=== PATIENT | female | born 1930 | race Caucasian/White ===

== ENCOUNTER → 2016-12-18 | Outpatient (CLI) | payer OTHER, MEDICARE | LOC: BHLMT 10:00 | PROVIDERS: ATTEND Internal Medicine Cardiovascular Disease | DX: I50.9 Heart failure, unspecified (principal) | CPT/HCPCS: 93306-PO ==

== ENCOUNTER 2017-09-10 16:29 | Observation (INO) | payer MEDICARE, OTHER ==
--- NOTE | 2017-09-10 16:44 | CPEKG ---
Heart Rate: 83 RR Interval: 723 P-R Interval: 120 QRSD Interval: 82 QT Interval: 428 QTC Interval: 503 P [place]: 250 QRS [place]: -29 T Wave [place]: 163 EKG Severity - ABNORMAL ECG - EKG Impression: ECTOPIC ATRIAL RHYTHM EKG Impression: BORDERLINE LEFT AXIS DEVIATION EKG Impression: ABNORMAL T, CONSIDER ISCHEMIA, LATERAL LEADS EKG Impression: BORDERLINE PROLONGED QT INTERVAL Electronically Signed By: Marino Chun 10-Sep-2017 21:43:15
[2017-09-10 16:50] LABS: PLATELET COUNT 567 10^3/uL (150-400)
--- NOTE | 2017-09-10 16:58 | CPEKG ---
Heart Rate: 91 RR Interval: 659 P-R Interval: 120 QRSD Interval: 82 QT Interval: 416 QTC Interval: 512 P [place]: 250 QRS [place]: -31 T Wave [place]: 180 EKG Severity - ABNORMAL ECG - EKG Impression: ECTOPIC ATRIAL RHYTHM EKG Impression: LEFT AXIS DEVIATION EKG Impression: NONSPECIFIC T ABNORMALITIES, LATERAL LEADS EKG Impression: PROLONGED QT INTERVAL Electronically Signed By: Marino Chun 10-Sep-2017 21:43:02
[2017-09-10 17:22] LABS: INR 0.88 (0.83-1.16); PROTIME(PATIENT) 12.2 SEC (12.0-15.0)
[2017-09-10] MEDS ORDERED: ONDANSETRON 4 MG/2 ML VIAL IVP ONE (17:59)
[2017-09-10] MEDS ORDERED: NS 1,000 ML IV ONE (18:16)
[2017-09-10] MEDS ORDERED: HYDROmorphONE/DILAUDID 2 MG/ML INJ IVP ONE ×2 (18:22→18:50)
[2017-09-10] MEDS ORDERED: IOPAMIDOL (ISOVUE 370) 100 ML BTL IV ONE (18:28)
--- NOTE | 2017-09-10 18:43 | EDPHY ---
H & P Time Seen by Provider: 09/10/17 16:43 HPI/ROS: Chief complaint. Chest pain HPI. Patient is an 87-year-old female with right-sided chest pain that began 2 days ago. She has been in rehab and was just discharged after a fall with rib fractures. Her left-sided rib fractures are healing and she does not really have any left-sided chest discomfort. Severe right-sided chest discomfort especially with taking a deep breath. She slightly short of breath. No fever or cough. She shows me pain in the lower right ribs. Really not tender in the upper abdomen however her pain has slowly increased over the past 2 days. No unusual leg pain or swelling. ROS Constitutional. no fever/chills, no weakness Eyes. no problems with vision ENT. no sore throat, no nasal drainage Cardiovascular. Right-sided chest pain Respiratory. no shortness of breath, no cough Abdominal. no abdominal pain, no nausea/vomiting, no diarrhea . no problems urinating MS. no calf pain/swelling, no neck/back pain, no joint pain Skin. no rash Lymph. no swollen glands Neuro. no headache, no dizziness, no difficulty walking or with speech Past Medical/Surgical History: Past medical history hypertension, COPD, hypothyroid, dyslipidemia, IBS, GERD, fall with rib fractures Social History: Single, nonsmoker, no alcohol Smoking Status: Never smoked Physical Exam: General Appearance: Alert well-developed female moderate distress vital signs are stable Eyes: Pupils equal and round no pallor or injection. ENT, Mouth: Mucous membranes are moist. Respiratory: There are no retractions, lungs are clear to auscultation. Cardiovascular: Regular rate and rhythm. Gastrointestinal: Abdomen is soft and nontender, no masses, bowel sounds normal. Neurological: Awake and alert, sensory and motor exams grossly normal. Skin: Warm and dry, no rashes. Musculoskeletal: Neck is supple nontender. Extremities symmetrical, full range of motion. Psychiatric: Patient is oriented X 3, there is no agitation. Constitutional: Initial Vital Signs Temperature (C) 36.8 C 09/10/17 16:39 Heart Rate 84 09/10/17 16:39 Respiratory Rate 18 09/10/17 16:39 Blood Pressure 182/95 H 09/10/17 16:39 O2 Sat (%) 97 09/10/17 16:39 O2 Delivery Mode Nasal Cannula O2 (L/minute) 3 Allergies/Adverse Reactions: MEREDITH Inhibitors Allergy (Severe, Verified 01/04/14 00:57) cephalexin [Cephalexin] Allergy (Severe, Verified 01/04/14 00:57) dicyclomine Allergy (Severe, Verified 01/04/14 00:57) lisinopril Allergy (Verified 09/10/17 16:38) Home Medications: Medication Instructions Recorded Levothyroxine Sodium [Levothroid] 50 mcg PO DAILY@0600 08/08/12 Omeprazole 40 mg PO DAILY 08/08/12 Simvastatin [Zocor 40 mg] 40 mg PO DAILY18 08/08/12 Citalopram [CeleXA 20 MG] 20 mg PO DAILY 11/26/13 Gabapentin [Neurontin] 600 mg PO BID 11/26/13 Verapamil ER [Calan SR/ER 240MG 240 mg PO BID 11/26/13 (*)] Aspirin [Aspirin 81mg (*)] 81 mg PO DAILY 12/15/14 Docusate Sodium [Colace 100 MG (*)] 100 mg PO HS 12/15/14 Acetaminophen [Tylenol 325mg (*)] 325 mg PO Q4 PRN 09/10/17 Benzocaine/Menthol 15/4 [Cepacol 1 lozenge PO PRN PRN 09/10/17 Lozenge] Bisacodyl [Dulcolax] 10 mg [place] HS PRN 09/10/17 Bumetanide [Bumetanide] 0.5 mg PO DAILY 09/10/17 Cholecalciferol Vit D3 [Vitamin D3 2,000 units PO DAILY 09/10/17 (*)] Ezetimibe [Ezetimibe] 10 mg PO HS 09/10/17 Hydrocodone/Acetaminophen [Gratis 1 each PO Q6 09/10/17 5/325 (*)] Lidocaine 4%/Menthol 1% [Icy Hot 1 patch TD DAILY 09/10/17 Lidocaine/Menthol 4%/1% Patch (*)] Magnesium Citrate 300 ml (*) 300 ml PO HS PRN 09/10/17 Methocarbamol [Robaxin 500 mg (*)] 500 mg PO DAILY 09/10/17 Nystatin Susp [Mycostatin Oral 5 ml PO QID PRN 09/10/17 Liquid] [place]-3 Fatty Acids [Fish Oil 1000 2,000 mg PO DAILY 09/10/17 mg (*)] Tears/Dextran 70/Hypromellose 1 drop EACHEYE Q2 PRN 09/10/17 [Natural Balance Tears (*)] Vit A/Vit C/Vit E/Zinc/Copper 2 each PO DAILY 09/10/17 [Preservision Tablet] Medical Decision Making - Diagnostics EKG Interpretation: EKG interpreted by me shows what appears to be an ectopic atrial rhythm with inverted P waves in several of the leads. There appears to be left axis deviation. QRS is otherwise normal. There is no significant ST elevation or depression. Laterally in leads 1 and leads 5 and 6 show inverted T-waves the rate is 91 Imaging Results: Imaging Impressions Chest X-Ray 09/10/17 17:07 Impression: 1. Numerous acute left rib fractures, no pneumothorax. 2. Dense retrocardiac and left basilar consolidation may represent pneumonia or pulmonary contusion. A small hemothorax versus parapneumonic effusion is suspected. Chest/Thorax CTA 09/10/17 18:17 Impression: 1. No definite pulmonary thromboemboli. 2. Numerous left rib fractures. 3. Moderate to large left-sided pleural effusion with extensive left lower lobe atelectasis. Findings were communicated by telephone with Dr. PATRICIA PERLA at 09/10/2017 19 :28 CT angio chest shows no pulmonary embolus. Left rib fractures moderate to large left-sided pleural effusion and atelectasis but no findings on the right reviewed by me and discussed with Radiology Procedures: IV normal saline, monitor Dilaudid for pain ED Course/Re-evaluation: D-dimer is elevated. The patient and her family and I discussed recommendation for CT angiogram of chest. They expressed understanding and agreement I consulted discussed the case with Dr. Mendoza before we have are CT angio results back but I do think the patient likely will need admission tonight. At 6:50 p.m. Patient is requesting further pain medication. 1 mg Dilaudid Re-evaluation 7:30 p.m. Consulted discussed case again with Dr. Mendoza and she agrees to the admission. Differential Diagnosis: Is somewhat confusing for the patient to be having right-sided chest discomfort. her findings are all on the left in terms of multiple rib fractures and pleural effusion. I considered acute coronary syndrome and pulmonary embolus. There is no evidence of pulmonary embolus on CT angiogram. I also considered acute gallbladder and cholecystitis and other problems related to the right upper quadrant. However the patient's liver function and lipase are normal. - Data Points Laboratory Results: Laboratory Results 09/10/17 16:40 09/10/17 16:40 09/10/17 09/10/17 09/10/17 16:40 16:40 16:40 WBC 9.21 10^3/uL 10^3/uL (3.80-9.50) RBC 4.07 10^6/uL L 10^6/uL (4.18-5.33) Hgb 13.3 g/dL g/dL (12.6-16.3) Hct 39.4 % % (38.0-47.0) MCV 96.8 fL fL (81.5-99.8) MCH 32.7 pg pg (27.9-34.1) MCHC 33.8 g/dL g/dL (32.4-36.7) RDW 13.1 % % (11.5-15.2) Plt Count 567 10^3/uL H 10^3/uL (150-400) MPV 8.4 fL L fL (8.7-11.7) Neut % (Auto) 74.0 % % (39.3-74.2) Lymph % (Auto) 15.9 % % (15.0-45.0) [place] % (Auto) 8.4 % % (4.5-13.0) Eos % (Auto) 1.1 % % (0.6-7.6) Baso % (Auto) 0.3 % % (0.3-1.7) Nucleat RBC Rel Count 0.0 % % (0.0-0.2) Absolute Neuts (auto) 6.82 10^3/uL H 10^3/uL (1.70-6.50) Absolute Lymphs (auto) 1.46 10^3/uL 10^3/uL (1.00-3.00) Absolute Monos (auto) 0.77 10^3/uL 10^3/uL (0.30-0.80) Absolute Eos (auto) 0.10 10^3/uL 10^3/uL (0.03-0.40) Absolute Basos (auto) 0.03 10^3/uL 10^3/uL (0.02-0.10) Absolute Nucleated RBC 0.00 10^3/uL 10^3/uL (0-0.01) Immature Gran % 0.3 % % (0.0-1.1) Immature Gran # 0.03 10^3/uL 10^3/uL (0.00-0.10) PT 12.2 SEC SEC (12.0-15.0) INR 0.88 (0.83-1.16) APTT 25.8 SEC SEC (23.0-38.0) D-Dimer 1.98 ug/mLFEU H ug/mLFEU (0.00-0.50) Sodium Potassium Chloride Carbon Dioxide Anion Gap BUN Creatinine Estimated GFR Glucose Calcium Total Bilirubin Cancelled Conjugated Bilirubin Cancelled Unconjugated Bilirubin Cancelled AST Cancelled ALT Cancelled Alkaline Phosphatase Cancelled Troponin I Total Protein Cancelled Albumin Cancelled Lipase Cancelled 09/10/17 16:40 WBC RBC Hgb Hct MCV MCH MCHC RDW Plt Count MPV Neut % (Auto) Lymph % (Auto) [place] % (Auto) Eos % (Auto) Baso % (Auto) Nucleat RBC Rel Count Absolute Neuts (auto) Absolute Lymphs (auto) Absolute Monos (auto) Absolute Eos (auto) Absolute Basos (auto) Absolute Nucleated RBC Immature Gran % Immature Gran # PT INR APTT D-Dimer Sodium 135 mEq/L mEq/L (135-145) Potassium 4.2 mEq/L mEq/L (3.5-5.2) Chloride 94 mEq/L L mEq/L (97-110) Carbon Dioxide 27 mEq/l mEq/l (22-31) Anion Gap 14 mEq/L mEq/L (8-16) BUN 15 mg/dL mg/dL (7-23) Creatinine 0.5 mg/dL L mg/dL (0.6-1.0) Estimated GFR > 60 Glucose 108 mg/dL H mg/dL (70-100) Calcium 9.5 mg/dL mg/dL (8.5-10.4) Total Bilirubin 0.6 mg/dL mg/dL (0.1-1.4) Conjugated Bilirubin 0.6 mg/dL H mg/dL (0.0-0.5) Unconjugated Bilirubin 0.0 mg/dL mg/dL (0.0-1.1) AST 23 IU/L IU/L (14-46) ALT 23 IU/L IU/L (9-52) Alkaline Phosphatase 159 IU/L H IU/L (38-126) Troponin I < 0.012 ng/mL ng/mL (0.000-0.034) Total Protein 7.1 g/dL g/dL (6.3-8.2) Albumin 3.9 g/dL g/dL (3.5-5.0) Lipase 44 IU/L IU/L (23-300) Medications Given: Discontinued Medications Hydromorphone HCl (Dilaudid) 0.5 mg IVP EDNOW ONE Stop: 09/10/17 18:23 Last Admin: 09/10/17 18:33 Dose: 0.5 mg Hydromorphone HCl (Dilaudid) 1 mg IVP EDNOW ONE Stop: 09/10/17 18:51 Last Admin: 09/10/17 19:19 Dose: 1 mg Sodium Chloride (Ns) 1,000 mls @ 0 mls/hr IV ONCE ONE; Wide Open PRN Reason: Protocol Stop: 09/10/17 18:17 Last Admin: 09/10/17 18:33 Dose: 1,000 mls Ondansetron HCl (Zofran) 4 mg IVP EDNOW ONE Stop: 09/10/17 18:00 Last Admin: 09/10/17 18:10 Dose: 4 mg Departure - Departure Disposition: [facility] Acute Clinical Impression: Chest pain Qualifiers: Chest pain type: unspecified Qualified Code(s): R07.9 - Chest pain, unspecified Condition: Fair
[2017-09-10] MEDS ORDERED: HYDROmorphONE/DILAUDID 2 MG/ML INJ IVP PRN (20:28)
[2017-09-10] MEDS ORDERED: ACETAMINOPHEN 325 MG TAB PO PRN (20:29)
--- NOTE | 2017-09-10 20:47 | GHP ---
[f rep st] HISTORY AND PHYSICAL DATE OF ADMISSION: 09/10/2017 HPI: The patient is an 87-year-old female who was admitted from the clinic, brought into the emergency room by ambulance from the clinic today for concern regarding severe chest pain. The chest pain started approximately 3 weeks ago, but significantly worsened over the past 24 hours. The patient was recently discharged from a rehab facility after a fall during which she obtained numerous left rib fractures. She was discharged from the rehab facility yesterday. Her children brought her into the clinic today for concern regarding this worsened chest pain. The chest pain is over her lateral right lower rib. On examination in the clinic today, she was found to be tachycardic with a heart rate of 102 beats per minute, diaphoretic, short of breath, tachypneic, although she was maintaining her oxygen sats at 95% on 3 liters via nasal cannula. She was quite anxious and in a severe amount of pain. There was a high suspicion for pulmonary embolism. She was transferred over to the hospital by ambulance. Upon arrival to the emergency department, her blood pressure was elevated at 182 /95, heart rate was down to 84 beats per minute. Oxygen sats remained stable at 97% on 3 L. She was afebrile. INITIAL LABS: Showed a normal white blood cell count. Elevated D-dimer at 1.98. Normal liver function. Normal lipase. Neg troponin. Due to the chest pain and elevated D-dimer, a CT angiogram was ordered which was negative for pulmonary embolism. A chest x-ray showed possible left lower lobe pneumonia versus pulmonary contusion with a small hemothorax versus parapneumonic effusion. EKG w/ non specific T wave changes. During the course of her stay in the emergency room, the patient was requiring increased amount of Dilaudid for pain management, and given unclear etiology of R sided cp and non specific changes on EKG, need for closer monitoring, plan for placing on telemetry overnight. PAST MEDICAL HISTORY: Includes osteoarthritis, post herpetic neuralgia and hysterectomy, rotator cuff surgery in 2003, and knee replacement in 2005. FAMILY HISTORY: Father of an [place] at 49 years old. She has 2 living children, son and daughter. No known medical complications. Mother at age 90 from uterine and cervical cancer. Brother at 39 years old from an [place]. Another brother and sister are both alive in their 80s, both with atrial fibrillation. ALLERGIES: Include lisinopril. CURRENT MEDICATIONS: Bumetanide 0.5 mg 1 tablet daily, tramadol extended release 100 mg 1 tablet daily, levothyroxine 50 mcg 1 tablet daily, gabapentin 300 mg capsule 1 capsule twice daily, gentamicin sulfate 40 mg/mL solution injected intramuscularly once daily, tramadol 50 mg 1 tablet as needed every 6 hours p.r.n. pain, temazepam 30 mg capsule 1 capsule at bedtime as needed, Celexa 20 mg 1 tablet daily, simvastatin 40 mg 1 tablet daily, Zetia 10 mg 1 tablet daily, vitamin D3 1000 units daily, aged extract 60 mg 4 capsules p.o. daily, citalopram 20 mg daily, omeprazole 40 mg 1 capsule daily, verapamil 240 mg 1 tablet twice daily, Procto-Med 25% cream applied rectally twice daily, aspirin 81 mg 1 tablet daily. REVIEW OF SYSTEMS Gen- denies fever, chills, headache. C/o anxiety, "something doesn't feel right ". ENT- denies sore throat, swollen glands, sinus pressure or pain Res- c/o shortness of breath, chest pain - right, lateral lower rib, worse with deep breath, denies cough, wheeze CV- denies palpitations, irregular heart beat, dizziness, lightheadedness Abd- denies n/v/d, abd pain Extremities- denies swelling in legs or feet Neuro- denies numbness, tingling, weakness, decreased strength or sensation EXAM Gen- AAOx3, anxious appearing, diaphoretic Head- normocephalic, atraumatic ENT- PEERL, EOMI Resp- LCTAB, no wheezing, rhonchi, rales CV- S1S2, RRR, no murmurs, rubs, gallops Abd- SNT, nondistended Extremities- no peripheral edema noted Neuro- grossly intact Psych- anxious but mood and affect full range PLAN: Patient will be admitted to telemetry overnight and pain management, possible further imaging pending ability to control patient's pain and depending on how she does overnight w/ RUQ u/s vs abd/pelvic ct, monitor or tele w/ non specific ekg changes and ongoing R sided cp. Workup thus far has been negative with the exception of possible left lower lobe pneumonia. DISPOSITION: Will be admitted to telemetry overnight, not safe to send home with pain out of control and ongoing R sided chest pain. /[id number]/MODL MTDD
[2017-09-10] MEDS ORDERED: VERAPAMIL ER 180 MG TAB PO SCH (21:00)
[2017-09-10] MEDS ORDERED: TEARS/DEXTRAN 70/HYPROMELLOSE 15 ML OPHT.BTL EACHEYE PRN (21:04)
[2017-09-10] MEDS ORDERED: MAGNESIUM CITRATE 300 ML BOTTLE PO PRN (21:04)
[2017-09-10] MEDS ORDERED: CEPACOL LOZENGE PO PRN (21:04)
[2017-09-10] MEDS ORDERED: BISACODYL 10 MG SUPP PR PRN (21:04)
[2017-09-10] MEDS: HYDROCODONE/APAP 5/325 TAB PO PRN (21:40)
[2017-09-10] MEDS ORDERED: NYSTATIN SUSP 500000 UNIT/5 ML UDCUP PO PRN (22:00)
[2017-09-10] MEDS: VERAPAMIL ER 240 MG TAB PO SCH (22:27)
[2017-09-10] MEDS: METHOCARBAMOL 500 MG TAB PO SCH (23:25)
[2017-09-11 04:36] LABS: PLATELET COUNT 441 10^3/uL (150-400)
[2017-09-11] MEDS: LEVOTHYROXINE 50 MCG TAB PO SCH (05:50)
[2017-09-11] MEDS: HYDROCODONE/APAP 5/325 TAB PO PRN (05:50)
--- NOTE | 2017-09-11 08:56 | SOAPPROG ---
[facility] Progress Note Assessment/Plan: Assessment: Plan: 09/11/17 08:55 right sided chest pain. seemingly better this am, but may be due to meds at 4 and 5 this am. Awaiting RUQ US results. If pain returns consider MRI T-spine to r/o nerve compression. Consider shingles, but doubt. Etiology remains to be elusive. WBC elevated, but may be a stress response. Will follow closely. Check UA and GGT this am. Subjective: Pt states right sided lower anterior rib pain is well medicated now. It began rather intensely 2 days ago while trying to go to sleep. No fever or chills. No sense of illness. She feels better currently, but things it is the medication. Mild nausea has been an issue. Appetite has been low recovering from severe left sided rib fractures. No bowel challenges. No rash. No thoracic spine pain . Objective: Vital Signs Temp Pulse Resp BP Pulse Ox 36.9 C 86 15 149/78 H 94 09/11/17 08:48 09/11/17 08:48 09/11/17 08:48 09/11/17 08:48 09/11/17 08:48 Laboratory Results 09/11/17 03:52 09/10/17 09/11/17 09/12/17 05:59 05:59 05:59 Intake Total 1500 Balance 1500 PT 12.2 SEC (12.0-15.0) 09/10/17 16:40 INR 0.88 (0.83-1.16) 09/10/17 16:40 Gen: bright, comfortable, pleasant HEENT: wnl Lungs: diminished LLL BS, stable crackles B Lower lung field. No pain to palpation below right breast Skin: minimal small red macules/papules below right breast without any tenderness Abd + bs, soft NT, ND negative Calderon's sign. LE's stable mild edema CTA Chest no PE, Moderate Left sided pleural effusion, stable rib fractures on the left EKG sinus inverted p waves, LAD no ST seg elevation or depression WBC elevated with left shift this am ICD10 Worksheet Patient Problems: Problems Problem Status Onset Chest pain Acute Altered mental status Acute Subarachnoid hemorrhage Acute
[2017-09-11] MEDS: PANTOPRAZOLE SODIUM 40 MG TAB PO SCH (10:13)
[2017-09-11] MEDS: GABAPENTIN 300 MG CAP PO SCH ×2 (10:13→21:20)
[2017-09-11] MEDS: VERAPAMIL ER 240 MG TAB PO SCH ×2 (10:13→21:21)
[2017-09-11] MEDS: LIDOCAINE 4%/MENTHOL 1% PATCH TD SCH (10:14)
[2017-09-11] MEDS: PRESERVISION AREDS2 FORMULA EYE VIT 1 EACH PO SCH (11:17)
[2017-09-11] MEDS: ASPIRIN 81 MG CHEWABLE TAB PO SCH (11:18)
[2017-09-11] MEDS: ATORVASTATIN CALCIUM 20 MG TAB PO SCH (11:18)
[2017-09-11] MEDS: BUMETANIDE 1 MG TAB PO SCH (11:18)
[2017-09-11] MEDS: CITALOPRAM 20 MG TAB PO SCH (11:18)
[2017-09-11] MEDS: CHOLECALCIFEROL VIT D3 1,000 UNITS TAB PO SCH (11:19)
[2017-09-11] MEDS: OMEGA-3 FATTY ACIDS 1,000 MG CAP PO SCH (11:19)
--- NOTE | 2017-09-11 15:09 | ASMTCMCOM ---
CM Note CM Note Notes: 09/11/2017 Case Management Note Reviewed chart. Pt admitted for chest pain. Met w/ daughter lM Sarkar [phone]. Son Néstor Burgos lives in [place] and plans to come to [place] for d/c support. Pt broke her ribs approximately a month ago and was d/c from [facility] about 3 weeks ago to [facility]. Pt was d/c from [facility] 2 days prior to admission to [facility]. Family will not return to [facility]. If pt requires SNF [facility] is the preferred facility. Phone call from [facility] RN August. Pt is current with [facility] and [facility]. Referral sent for [facility]. Family may need to consider unskilled care in the home initially after d/c. Pt has been unable to prepare meals in the home since leaving [facility]. Case Management d/c needs to be determined. At a minimum pt jovon resume services with [facility]. Case Management to follow. Date Signed: 09/11/2017 03:08 PM Electronically Signed By:Gail Parr RN
[2017-09-11] MEDS ORDERED: DOCUSATE SODIUM 100 MG CAP PO SCH (21:00)
[2017-09-11] MEDS ORDERED: EZETIMIBE 10 MG TAB PO SCH (21:00)
[2017-09-11] MEDS: METHOCARBAMOL 500 MG TAB PO SCH (21:21)
--- NOTE | 2017-09-12 01:14 | CPEKG ---
Heart Rate: 60 RR Interval: 1000 QRSD Interval: 84 QT Interval: 476 QTC Interval: 476 QRS [place]: -12 T Wave [place]: 228 EKG Severity - ABNORMAL ECG - EKG Impression: ATRIAL FIBRILLATION EKG Impression: ABNORMAL T, CONSIDER ISCHEMIA, DIFFUSE LEADS EKG Impression: ATRIAL FIBRILLATION IS NEW IN COMPARISON TO PRIOR (ECTOPIC ATRIAL RHYTHM) Electronically Signed By: Barrington Saab 12-Sep-2017 23:00:26
[2017-09-12] MEDS: LEVOTHYROXINE 50 MCG TAB PO SCH (04:44)
[2017-09-12 04:55] LABS: PLATELET COUNT 423 10^3/uL (150-400)
[2017-09-12] MEDS ORDERED: BISACODYL 10 MG SUPP PR ONE (08:47)
--- NOTE | 2017-09-12 08:53 | SOAPPROG ---
SANDER Progress Note Assessment/Plan: Assessment: Plan: 09/11/17 08:55 right sided chest pain. seemingly better this am, but may be due to meds at 4 and 5 this am. Awaiting RUQ US results. If pain returns consider MRI T-spine to r/o nerve compression. Consider shingles, but doubt. Etiology remains to be elusive. WBC elevated, but may be a stress response. Will follow closely. Check UA and GGT this am. 09/12/17 08:51 complex right sided chest pain. Patient kept a second night given prior profound severity of pain. She has not needed additional pain medication in greater than 24 hours now. UA suggestive of infection, culture pending, will f/u as out patient limited a fib, now sinus. Will f/u as outpatient. Would be very cautious with anticoagulants given multiple complex rib fractures and fall risk low back pain, resume long acting tramadol as outpatient d/c home with [facility] Subjective: Right sided chest pain has remained to be significantly improved. Ice handling pain. Patient has concerns regarding back pain at home. She has [facility] working with her after [facility] to [facility]. Objective: Vital Signs Temp Pulse Resp BP Pulse Ox 36.9 C 82 18 110/52 L 98 09/12/17 04:00 09/12/17 04:00 09/12/17 04:00 09/12/17 04:00 09/12/17 04:00 Laboratory Results 09/12/17 04:28 09/12/17 04:28 09/11/17 09/12/17 09/13/17 05:59 05:59 05:59 Intake Total 1500 680 Output Total 400 250 Balance 1500 280 -250 PT 12.2 SEC (12.0-15.0) 09/10/17 16:40 INR 0.88 (0.83-1.16) 09/10/17 16:40 Gen: Bright, comfortable Lungs: stable diminished BS Heart: currently RRR tele sinus currently. HS limited rate controlled a fib, pt reports remote history of same Abd + bs soft, minimal right lateral rib pain LE's stable mild edema WBC has normalized RUQ US wnl ICD10 Worksheet Patient Problems: Problems Problem Status Onset Chest pain Acute Altered mental status Acute Subarachnoid hemorrhage Acute
--- NOTE | 2017-09-12 08:56 | PDIAF ---
- Diagnosis Diagnosis: right sided chest pain improved, complex left rib fx's Code Status: Do Not Resuscitate - Medication Management Discharge Medications: Medications to Continue on Transfer Levothyroxine Sodium [Levothroid] 50 mcg PO DAILY@0600 08/08/12 [Last Taken ] Omeprazole 40 mg PO DAILY 08/08/12 [Last Taken 01/03/14] Simvastatin [Zocor 40 mg] 40 mg PO DAILY18 08/08/12 [Last Taken 01/03/14] Citalopram [CeleXA 20 MG] 20 mg PO DAILY 11/26/13 [Last Taken 12/15/14] Gabapentin [Neurontin] 600 mg PO BID 11/26/13 [Last Taken 12/15/14] Verapamil ER [Calan SR/ER 240MG (*)] 240 mg PO BID 11/26/13 [Last Taken 12/15/14 ] Aspirin [Aspirin 81mg (*)] 81 mg PO DAILY 12/15/14 [Last Taken Unknown] Docusate Sodium [Colace 100 MG (*)] 100 mg PO HS 12/15/14 [Last Taken Unknown] Acetaminophen [Tylenol 325mg (*)] 325 mg PO Q4 PRN 09/10/17 [Last Taken Unknown] Benzocaine/Menthol 15/4 [Cepacol Lozenge] 1 lozenge PO PRN PRN 09/10/17 [Last Taken Unknown] Bisacodyl [Dulcolax] 10 mg [place] HS PRN 09/10/17 [Last Taken Unknown] Bumetanide 0.5 mg PO DAILY 09/10/17 [Last Taken Unknown] Cholecalciferol Vit D3 [Vitamin D3 (*)] 2,000 units PO DAILY 09/10/17 [Last Taken Unknown] Ezetimibe 10 mg PO HS 09/10/17 [Last Taken Unknown] Lidocaine 4%/Menthol 1% [Icy Hot Lidocaine/Menthol 4%/1% Patch (*)] 1 patch TD DAILY 09/10/17 [Last Taken Unknown] Magnesium Citrate 300 ml (*) 300 ml PO HS PRN 09/10/17 [Last Taken Unknown] Methocarbamol [Robaxin 500 mg (*)] 500 mg PO DAILY 09/10/17 [Last Taken Unknown] Nystatin Susp [Mycostatin Oral Liquid] 5 ml PO QID PRN 09/10/17 [Last Taken Unknown] [place]-3 Fatty Acids [Fish Oil 1000 mg (*)] 2,000 mg PO DAILY 09/10/17 [Last Taken Unknown] Tears/Dextran 70/Hypromellose [Natural Balance Tears (*)] 1 drop EACHEYE Q2 PRN 09/10/17 [Last Taken Unknown] Vit A/Vit C/Vit E/Zinc/Copper [Preservision Areds Tablet] 2 each PO DAILY [Last Taken Unknown] Acetaminophen [Tylenol 325mg (*)] 650 mg PO Q4HRS PRN tab 09/12/17 [Last Taken Unknown] Imaging Services Director Antibiotics: n/a Discharge Medications: Refer to the Discharge Home Medication list for PRN reason. PICC Care - Routine: N/A - Orders Services needed: Home Care, Physical Therapy, Occupational Therapy Home Care Face to Face: I certify that this patient was under my care and that I had the required [id number] encounter meeting the encounter requirements on the discharge day. My findings support the fact that the patient is homebound as defined in Home Care Face to Face Continued: [facility] Chapter 7 Medicare Benefits Manual 30.1.1 , The condition of the patient is such that there exists a normal inability to leave home and consequently, leaving home would require a considerable and taxing effort. Isolation Type: None Diet Recommendation: no restrictions on diet Diet Texture: Regular Texture Diet Weigh Patient: weekly Trevizo: No - Follow Up Care Current Providers and Referrals: Cali Neal MD [Primary Care Provider] - As per Instructions
[2017-09-12 09:14] VITALS: BP 128/68
[2017-09-12] MEDS: PANTOPRAZOLE SODIUM 40 MG TAB PO SCH (09:15)
[2017-09-12] MEDS: GABAPENTIN 300 MG CAP PO SCH (09:15)
[2017-09-12] MEDS: CITALOPRAM 20 MG TAB PO SCH (09:15)
[2017-09-12] MEDS: PRESERVISION AREDS2 FORMULA EYE VIT 1 EACH PO SCH (09:15)
[2017-09-12] MEDS: ASPIRIN 81 MG CHEWABLE TAB PO SCH (09:15)
[2017-09-12] MEDS: CHOLECALCIFEROL VIT D3 1,000 UNITS TAB PO SCH (09:15)
[2017-09-12] MEDS: ATORVASTATIN CALCIUM 20 MG TAB PO SCH (09:15)
[2017-09-12] MEDS: VERAPAMIL ER 240 MG TAB PO SCH (09:15)
[2017-09-12] MEDS: OMEGA-3 FATTY ACIDS 1,000 MG CAP PO SCH (09:16)
[2017-09-12] MEDS: BUMETANIDE 1 MG TAB PO SCH (09:16)
--- NOTE | 2017-09-12 09:37 | GDS ---
[f rep st] DISCHARGE SUMMARY DISPOSITION: Home with home healthcare. REASON FOR ADMISSION: Severe right-sided chest pain. DISCHARGE DIAGNOSES: 1. Severe right-sided chest pain. Etiology remains unclear, but significantly improved. She is now able to modify her pain with ice. 2. Complex left-sided rib fractures with previous flail chest. She had been hospitalized at [facility] , had rehab at [facility] and had just gotten home 2 days prior to admission to [facility]. She will be going back home with home care through [facility]. 3. Limited atrial fibrillation with rate control. She has a history of same. She has converted angie k to sinus rhythm. Given complex rib fractures and fall risk, will not add anticoagulants at this ti mt. 4. Chronic obstructive pulmonary disease. Continue chronic oxygen therapy. 5. 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 This has been an issue with ambulation, as well as pain medicines, increasing her fall risk. Will cautiously resume tramadol, long-acting, 200 mg once daily once back at home. She will have outpatient followup within the next week and will adjust her medications based on wily sense of safety and stability. /[id number]/MODL
[2017-09-12] MEDS: LIDOCAINE 4%/MENTHOL 1% PATCH TD SCH (10:16)
--- NOTE | 2017-09-12 12:17 | ASMTLACE ---
LACE Length of stay for Answers: 2 days current admission Acuity / Level of Answers: No Care: Did the patient have an inpatient admission? Comorbidities - select Answers: Chronic pulmonary disease all that apply History of falls Other Notes: HTN, GERD # of Emergency department Answers: 1-2 visits in the last 6 months Score: 9 Date Signed: 09/12/2017 12:16 PM Electronically Signed By:BENSON Rodriguez
--- NOTE | 2017-09-12 12:21 | ASDISCHSUM ---
Discharge Information Plan Status:Home with Home Health Medically Cleared to Leave:09/12/2017 Discharge Date:09/12/2017 11:26 AM CM D/C Disposition: ADT D/C Disposition:[id number] Projected Discharge Date:09/12/2017 11:00 AM Transportation at D/C: Discharge Delay Reason: Follow-Up Date:09/12/2017 11:00 AM Discharge Slot: Final Diagnosis: Placement Information Referral Type:*Home Health Care Services Referral ID:[id number] Provider Name:[facility] [place] Address 1:[address] [address] Address 2: City:[place] Selection Factors: State:[place] Patient Contact Information Contact Name:ELVA Relationship:Son Address:[address] Work Phone: [place]:[facility] Alternate Phone: State/Zip Code:[place] [address] Email: Financial Information Financial Class:Medicare Primary Plan Desc:MEDICARE OUTPATIENT Primary Plan Number:[id number] Secondary Plan Desc: Secondary Plan Number: Assessment Information LACE LACE Length of stay for Answers: 2 days current admission Acuity / Level of Answers: No Care: Did the patient have an inpatient admission? Comorbidities - select Answers: Chronic pulmonary disease all that apply History of falls Other Notes: HTN, GERD # of Emergency department Answers: 1-2 visits in the last 6 months Score: 9 Date Signed: 09/12/2017 12:16 PM Electronically Signed By:BENSON Rodriguze [facility] CM Progress Note CM Note CM Note Notes: 09/11/2017 Case Management Note Reviewed chart. Pt admitted for chest pain. Met w/ daughter Ml Sarkar [phone]. Son Néstor Burgos lives in [place] and plans to come to [place] for d/c support. Pt broke her ribs approximately a month ago and was d/c from [facility] about 3 weeks ago to [facility]. Pt was d/c from [facility] 2 days prior to admission to [facility]. Family will not return to [facility]. If pt requires SNF [facility] is the preferred facility. Phone call from [facility] RN August. Pt is current with [facility] and RN. Referral sent for [facility]. Family may need to consider unskilled care in the home initially after d/c. Pt has been unable to prepare meals in the home since leaving [facility]. Case Management d/c needs to be determined. At a minimum pt jovon resume services with [facility]. Case Management to follow. Date Signed: 09/11/2017 03:08 PM Electronically Signed By:Gail Parr RN Case Management Discharge Plan Note Case Management Discharge Discharge Order Complete? Answers: Yes Patient to Obtain Answers: via [facility] Transportation Arranged Answers: Family/Friends Transport will Pick (Date 09/12/2017 11:00 AM & Time) EMTALA Complete Answers: No Case Management Transport Answers: No Form Complete Faxed Final Orders Answers: Yes Agency/Facility Transfer Answers: Yes Report Printed & Faxed to Receiving Agency Family Notified Answers: Yes Discharge Comments Notes: CM spoke w/ KENNETH Golden regarding d/c POC. Pt is being discharged today. CM met w/ pt for dispo planning. Pt reports that she would like to d/c home w/ HC. CM spoke w/ daughter regarding d/c plans. Daughter requested to have a PEST CONTROL SPECIALIST added to the d/c orders. CM communicated this w/ the office receptionist at [facility] for [facility] Henry to add additional services to . DC orders sent to [facility]. CM available for changes. Plan: [facility] HC, PT, OT, RN, PEST CONTROL SPECIALIST Date Signed: 09/12/2017 12:20 PM Electronically Signed By:BENSON Rodriguez Intervention Information Intervention Type:*JAY-Signed Date of Service:09/11/2017 12:20 PM Patient Type:Observation Staff Member:Kimberly Gonzalez Hours: Discipline: Severity: Comment:
== END 2017-09-12 11:26 | disposition home health service (06) ==
LOC: EDUNIT# → INTOOBSV 19:43 → F2W 21:42
PROVIDERS: ADMIT Internal Medicine; ATTEND Internal Medicine
DX: R07.9 Chest pain, unspecified (principal); S22.42XA Multiple fractures of ribs, left side, initial encounter for closed fracture; I48.91 Unspecified atrial fibrillation; J44.9 Chronic obstructive pulmonary disease, unspecified; M51.36 Other intervertebral disc degeneration, lumbar region
CPT/HCPCS: 71045; 71275; 76700; 93005; 96361; 96374; 96375; 96376; 97116; 97161; 99285; G0378; G8978; G8979; G8980; J1170; J2405; Q9967